=== PATIENT | male | born 1955 | race Caucasian/White ===

== ENCOUNTER 2017-12-08 15:00 | Outpatient (RCR) | payer BC, SELFPAY | END 2017-12-08 15:01 | disposition home or self-care (01) | LOC: PT 15:00 | PROVIDERS: Visit Provider Emergency Medicine | DX: L97.901 Non-pressure chronic ulcer of unspecified part of unspecified lower leg limited to breakdown of skin (principal) | CPT/HCPCS: 29580; 97163; 97164; 97597 ==

== ENCOUNTER → 2017-12-10 07:38 | Outpatient (CLI) | payer BC, SELFPAY ==
[2017-12-10 07:44] LABS: Microscopic, Urine URINE MICROSCOPIC (MICROSCOPIC)
[2017-12-10 13:43] LABS: Appearance,Urine CLEAR (Clear); Bilirubin,Urine Negative (Negative); Blood, Urine Negative (Negative); Color,Urine DK YELLOW (Yellow); Glucose,Urine (UA) Negative (Negative); Ketones,Urine Negative (Negative); Leukocyte Esterase,Urine Negative (Negative); Nitrate,Urine Negative (Negative); Protein,Urine Negative (Negative)
[2017-12-10 13:48] LABS: Basophils # 0.1 K/mm3 (0-0.2); Basophils % 0.6 % (0.1-2.0); Eosinophils # 0.6 K/mm3 (0.0-0.4); Hematocrit 44.5 % (42.0-52.0); Hemoglobin 14.2 g/dL (14.1-18.0); Lymphocytes % 14.3 K/mm3 (10-50); Mean Corpuscular HGB Conc 31.9 g/dL (31.8-35.4); Mean Corpuscular Volume 84.6 fl (80-94); Mean Platelet Volume 6.7 fl (7.4-10.4); Monocytes # 0.6 K/mm3 (0.1-1.0); Monocytes % 4.3 % (1.7-9.3); Neutrophils # 10.9 K/mm3 (1.8-7.8); Neutrophils % 76.9 % (37.0-80.0); Platelet Count 450 K/mm3 (142-424); Red Blood Count 5.26 M/mm3 (4.60-6.20); Red Cell Distribution Width 13.9 % (11.5-17.5); White Blood Count 14.2 K/mm3 (4.8-10.8)
[2017-12-10 13:51] LABS: Bacteria,Urine 1+ /lpf; Mucus,Urine Trace /lpf; WBC,Urine Occasional #/hpf (0-3)
[2017-12-10 14:19] LABS: Hemoglobin A1C 8.7 % (0.0-7.0)
[2017-12-10 14:23] LABS: Alanine Aminotransferase 14 U/L (12-78); Albumin Level 3.2 gm/dL (3.4-5.0); Albumin/Globulin Ratio 0.8 (1.1-1.8); Alkaline Phosphatase 128 U/L (46-116); Amylase 21 U/L (25-125); Anion Gap 15.9 mEq/L (5-15); Aspartate Amino Transferase 8 U/L (15-37); Bilirubin,Total 0.5 mg/dL (0.2-1.0); Blood Urea Nitrogen 7 mg/dL (7-18); C-Reactive Protein 1.7 mg/L (0.0-0.9); Calcium 8.7 mg/dL (8.5-10.1); Carbon Dioxide 27 mmol/L (21.0-32.0); Chloride 100 mmol/L (98-107); Chol/HDL Ratio 4.3 (1-3.5); Cholesterol 116 mg/dL (140-200); Creatine Kinase 76 U/L (39-308); Creatinine,Serum 1.02 mg/dL (0.70-1.30); Estimated Glomerular Filt Rate 74 ml/min (>60); Free T4 (Free Thyroxine) 1.32 ng/dl (0.76-1.46); GFR (African American) 90 ML/MIN (>60); Globulin 3.8 gm/dl (1.3-3.2); Glucose 131 mg/dL (74-106); HDL Cholesterol 27 mg/dL (27-67); LDL Cholesterol 62 mg/dL (0-130); Lipase 81 u/L (73-393); Potassium 4.9 mmoL/L (3.5-5.1); Prostate Specific Ag Screen 0.2 ng/mL (0.0-4.0); Sodium 138 mmol/L (136-145); Thyroid Stimulating Hormone 4.26 uIU/ml (0.358-3.740); Triglycerides 134 mg/dL (30-200); VLDL Cholesterol 27 mg/dL (0-40)
[2017-12-10 14:34] LABS: Erythrocyte Sedimentation Rate 0 mm/hr (0-20)
[2017-12-11 09:34] LABS: Folate 6.6 ng/mL (>3.0); Vitamin B12 306 pg/mL (232-1245)
== END ==
PROVIDERS: PCP Emergency Medicine; Visit Provider Emergency Medicine
DX: I10 Essential (primary) hypertension (principal); E11.9 Type 2 diabetes mellitus without complications; E78.5 Hyperlipidemia, unspecified; G62.9 Polyneuropathy, unspecified
CPT/HCPCS: 36415; 80053; 80061; 81001; 82150; 82550; 82607; 82746; 83036; 83690; 84439; 84443; 85025; 85651; 86140; G0103